=== PATIENT | female | born 1975 | race Caucasian/White ===

== ENCOUNTER 2020-11-08 09:13 | Emergency (ER) | payer BC ==
[~2020-11-08] VITALS: Ht 170.2 cm; Wt 104.5 kg
[~2020-11-08 09:13] MED LIST: ALPR-624 PO
[2020-11-08] MEDS ORDERED: normal saline 1000ML IV soln IVB ONE (09:35)
[2020-11-08] MEDS ORDERED: morphine 4 MG/ML inj SYRINge IV PRN (09:35)
[2020-11-08] MEDS ORDERED: ondansetron/PF 4mg/2ml inj IV ONE (09:35)
--- NOTE | 2020-11-08 09:52 | NUR ---
Pt refused morphine and zofran. States if she feels the need for pain medication she will inform me. Pt to CT via W/C.
[2020-11-08 09:53] LABS: CLARITY,URINE CLEAR (Clear); COLOR,URINE YELLOW (Yellow); GLUCOSE, URINE NEGATIVE (Neg); KETONES,URINE NEGATIVE (Neg); LEUKOCYTE ESTERASE ,URINE TRACE (Neg); NITRITES, URINE NEGATIVE (Neg); OCCULT BLOOD,URINE NEGATIVE (Neg); PH,URINE 6.5 (4.8-8.0); PROTEIN,URINE NEGATIVE (Neg); UROBILINOGEN,URINE 0.2 E.U/dL (0.2-1.0)
[2020-11-08 09:54] LABS: BASOPHILS % (AUTO) 0.5 % (0-1); EOSINOPHILS # (AUTO) 0.2 X10'3 (0-0.9); HEMATOCRIT 37.4 % (35.0-45.0); HEMOGLOBIN 12.5 g/dl (12.0-16.0); LYMPHOCYTES # (AUTO) 1.7 X10'3 (1.1-4.8); LYMPHOCYTES % (AUTO) 21.8 % (21-51); MEAN CORPUSCULAR HEMOGLOBIN 30.1 PG (27.0-31.0); MEAN CORPUSCULAR HGB CONC 33.4 g/dL (33.0-36.5); MEAN CORPUSCULAR VOLUME 90.1 FL (78-98); MEAN PLATELET VOLUME 8.7 FL (7.4-10.4); MONOCYTES # (AUTO) 0.7 X10'3 (0-0.9); MONOCYTES % (AUTO) 8.5 % (2-12); NEUTROPHILS # (AUTO) 5.4 X10'3 (1.8-7.7); NEUTROPHILS % (AUTO) 67.2 % (42-75); PLATELET COUNT 245 X10'3 (140-440); RED BLOOD COUNT 4.16 X10'6 (4.20-5.60); RED CELL DISTRIBUTION WIDTH 14.5 % (11.5-14.5)
[2020-11-08 10:13] LABS: UA COLLECTION TYPE CLN CATCH MIDSTREAM
[2020-11-08 10:14] LABS: BACTERIA,URINE 3+ /HPF (Neg); RBC,URINE NONE SEEN /HPF (0-2); SQUAMOUS EPITHELIAL CELL,UR FEW /LPF (FEW); WBC CLUMPS,URINE FEW /HPF (NEGATIVE); WBC,URINE 0-4 /HPF (0-4)
[2020-11-08 10:18] LABS: ALANINE AMINOTRANSFERASE 37 U/L (12-78); ALBUMIN 3.8 G/DL (3.4-5.0); ALBUMIN/GLOBULIN RATIO 0.9 (1.1-1.5); ALKALINE PHOSPHATASE 76 IU/L (46-116); ANION GAP 9 (8-16); ASPARTATE AMINO TRANSFERASE 23 U/L (10-37); BILIRUBIN,TOTAL 0.3 MG/DL (0.1-1.0); BLOOD UREA NITROGEN 8 MG/DL (7-18); BUN/CREATININE RATIO 7.8 (6.6-38.0); CALCIUM 9.5 MG/DL (8.5-10.1); CHLORIDE 103 MMOL/L (99-107); CREATININE 1.02 MG/DL (0.40-0.90); GLUCOSE 93 MG/DL (70-104); POTASSIUM 3.8 MMOL/L (3.5-5.1); SODIUM 140 MMOL/L (135-145); TOTAL PROTEIN 7.9 G/DL (6.4-8.2); eGFR 59 ML/MIN
[2020-11-08] MEDS ORDERED: AMOX-422 PO (10:35)
[2020-11-08] MEDS ORDERED: ONDA4TAB6 PO (10:35)
[2020-11-08 11:28] VITALS: BP 149/77
== END 2020-11-08 11:31 | disposition home or self-care (01) ==
LOC: ER 09:14
DX: K57.92 Diverticulitis of intestine, part unspecified, without perforation or abscess without bleeding (principal); J45.909 Unspecified asthma, uncomplicated; Z87.440 Personal history of urinary (tract) infections; Z90.89 Acquired absence of other organs; Z88.8 Allergy status to other drugs, medicaments and biological substances; Z79.899 Other long term (current) drug therapy; Z79.2 Long term (current) use of antibiotics
CPT/HCPCS: 36415; 71045; 74176; 80053; 81001; 83605; 84145; 85025; 87040; 87077; 87088; 87186; 93005; 96360; 99285; J7030; 99284

== ENCOUNTER 2020-11-20 19:40 | Emergency (ER) | payer BC ==
[~2020-11-20] VITALS: Ht 170.2 cm; Wt 103.2 kg
[~2020-11-20 19:40] MED LIST changes: +ONDA4TAB6 PO
[2020-11-20] MEDS ORDERED: ATOR10TA PO (20:10)
[2020-11-20] MEDS ORDERED: SYN0.088T PO (20:10)
[2020-11-20 20:55] LABS: BASOPHILS % (AUTO) 0.4 % (0-1); EOSINOPHILS # (AUTO) 0.1 X10'3 (0-0.9); EOSINOPHILS % (AUTO) 0.9 % (0-6); HEMATOCRIT 39.2 % (35.0-45.0); HEMOGLOBIN 13.2 g/dl (12.0-16.0); LYMPHOCYTES # (AUTO) 1.7 X10'3 (1.1-4.8); LYMPHOCYTES % (AUTO) 16.6 % (21-51); MEAN CORPUSCULAR HEMOGLOBIN 29.9 PG (27.0-31.0); MEAN CORPUSCULAR HGB CONC 33.6 g/dL (33.0-36.5); MEAN CORPUSCULAR VOLUME 88.8 FL (78-98); MEAN PLATELET VOLUME 9.4 FL (7.4-10.4); MONOCYTES # (AUTO) 0.6 X10'3 (0-0.9); NEUTROPHILS # (AUTO) 7.9 X10'3 (1.8-7.7); NEUTROPHILS % (AUTO) 76.1 % (42-75); PLATELET COUNT 234 X10'3 (140-440); RED BLOOD COUNT 4.41 X10'6 (4.20-5.60); RED CELL DISTRIBUTION WIDTH 14.3 % (11.5-14.5); WHITE BLOOD COUNT 10.4 X10'3 (4.5-11.0)
[2020-11-20 21:03] VITALS: BP 147/85
--- NOTE | 2020-11-20 21:07 | NUR ---
TO CT SCAN
[2020-11-20 21:15] LABS: ALANINE AMINOTRANSFERASE 25 U/L (12-78); ALBUMIN 4.5 G/DL (3.4-5.0); ALBUMIN/GLOBULIN RATIO 1.1 (1.1-1.5); ALKALINE PHOSPHATASE 75 IU/L (46-116); ANION GAP 11 (8-16); ASPARTATE AMINO TRANSFERASE 15 U/L (10-37); BILIRUBIN,TOTAL 0.3 MG/DL (0.1-1.0); BLOOD UREA NITROGEN 14 MG/DL (7-18); BUN/CREATININE RATIO 14.3 (6.6-38.0); CALCIUM 9.3 MG/DL (8.5-10.1); CHLORIDE 101 MMOL/L (99-107); CREATININE 0.98 MG/DL (0.40-0.90); GLUCOSE 105 MG/DL (70-104); SODIUM 139 MMOL/L (135-145); TOTAL CARBON DIOXIDE 26.8 MMOL/L (24-32); TOTAL PROTEIN 8.5 G/DL (6.4-8.2); eGFR 62 ML/MIN
[2020-11-20 21:16] LABS: CLARITY,URINE CLEAR (Clear); COLOR,URINE YELLOW (Yellow); GLUCOSE, URINE NEGATIVE (Neg); KETONES,URINE NEGATIVE (Neg); LEUKOCYTE ESTERASE ,URINE NEGATIVE (Neg); NITRITES, URINE NEGATIVE (Neg); OCCULT BLOOD,URINE NEGATIVE (Neg); PH,URINE 6.5 (4.8-8.0); PROTEIN,URINE NEGATIVE (Neg); UROBILINOGEN,URINE 0.2 E.U/dL (0.2-1.0)
[2020-11-20 21:18] LABS: UA COLLECTION TYPE CLN CATCH MIDSTREAM
== END 2020-11-20 21:35 | disposition home or self-care (01) ==
LOC: ER 19:41
DX: R55 Syncope and collapse (principal); R06.89 Other abnormalities of breathing; R41.0 Disorientation, unspecified; J45.909 Unspecified asthma, uncomplicated; F41.9 Anxiety disorder, unspecified; Z88.6 Allergy status to analgesic agent; Z88.5 Allergy status to narcotic agent; Z79.899 Other long term (current) drug therapy
CPT/HCPCS: 36415; 70450; 71045; 80053; 81003; 83880; 84484; 85025; 93005; 99285

== ENCOUNTER 2021-11-23 08:52 | Emergency (ER) | payer BC ==
[~2021-11-23] VITALS: Ht 170.2 cm; Wt 109.1 kg
[~2021-11-23 08:52] MED LIST changes: -ALPR-624 PO; +ATOR10TA PO; -ONDA4TAB6 PO; +SYN0.088T PO
[2021-11-23 08:59] VITALS: BP 119/89
[2021-11-23] MEDS ORDERED: piperacillin/tazo 3.375gm/50ml 50 ML IV ONE (09:05)
[2021-11-23] MEDS ORDERED: normal saline 1000ML IV soln IV ONE (09:05)
[2021-11-23 09:32] LABS: BASOPHILS % (AUTO) 0.2 % (0-1); EOSINOPHILS # (AUTO) 0.1 X10'3 (0-0.9); EOSINOPHILS % (AUTO) 1.3 % (0-6); HEMOGLOBIN 13.1 g/dl (12.0-16.0); LYMPHOCYTES # (AUTO) 0.6 X10'3 (1.1-4.8); LYMPHOCYTES % (AUTO) 11.1 % (21-51); MEAN CORPUSCULAR HGB CONC 33.6 g/dL (33.0-36.5); MEAN CORPUSCULAR VOLUME 92.4 FL (78-98); MEAN PLATELET VOLUME 8.3 FL (7.4-10.4); MONOCYTES # (AUTO) 0.4 X10'3 (0-0.9); MONOCYTES % (AUTO) 6.6 % (2-12); NEUTROPHILS # (AUTO) 4.4 X10'3 (1.8-7.7); NEUTROPHILS % (AUTO) 80.8 % (42-75); PLATELET COUNT 217 X10'3 (140-440); RED BLOOD COUNT 4.22 X10'6 (4.20-5.60); RED CELL DISTRIBUTION WIDTH 13.3 % (11.5-14.5); WHITE BLOOD COUNT 5.5 X10'3 (4.5-11.0)
[2021-11-23 10:04] LABS: ALANINE AMINOTRANSFERASE 29 U/L (12-78); ALBUMIN 3.8 G/DL (3.4-5.0); ALBUMIN/GLOBULIN RATIO 1.1 (1.1-1.5); ALKALINE PHOSPHATASE 67 IU/L (46-116); ANION GAP 9 (8-16); ASPARTATE AMINO TRANSFERASE 20 U/L (10-37); BILIRUBIN,TOTAL 0.5 MG/DL (0.1-1.0); BLOOD UREA NITROGEN 13 MG/DL (7-18); BUN/CREATININE RATIO 12.9 (6.6-38.0); CALCIUM 8.6 MG/DL (8.5-10.1); CHLORIDE 101 MMOL/L (99-107); CREATININE 1.01 MG/DL (0.40-0.90); GLUCOSE 108 MG/DL (70-104); POTASSIUM 3.9 MMOL/L (3.5-5.1); SODIUM 137 MMOL/L (135-145); TOTAL CARBON DIOXIDE 26.8 MMOL/L (24-32); TOTAL PROTEIN 7.3 G/DL (6.4-8.2); eGFR 60 ML/MIN
[2021-11-23] MEDS ORDERED: TRAM50TA2 PO (10:13)
[2021-11-23] MEDS ORDERED: AMOX-117 PO (10:13)
[2021-11-23] MEDS ORDERED: DOXY100C77 PO (10:13)
[2021-11-23] MEDS ORDERED: ONDA4TAB12 PO (10:13)
[2021-11-23 10:49] LABS: CLARITY,URINE CLEAR (Clear); COLOR,URINE YELLOW (Yellow); GLUCOSE, URINE NEGATIVE (Neg); KETONES,URINE NEGATIVE (Neg); LEUKOCYTE ESTERASE ,URINE NEGATIVE (Neg); NITRITES, URINE NEGATIVE (Neg); OCCULT BLOOD,URINE NEGATIVE (Neg); PH,URINE 5.5 (4.8-8.0); PROTEIN,URINE NEGATIVE (Neg); UROBILINOGEN,URINE 0.2 E.U/dL (0.2-1.0)
[2021-11-23 10:54] LABS: UA COLLECTION TYPE CLN CATCH MIDSTREAM
== END 2021-11-23 13:26 | disposition home or self-care (01) ==
LOC: ER 08:53
DX: K57.92 Diverticulitis of intestine, part unspecified, without perforation or abscess without bleeding (principal); R10.30 Lower abdominal pain, unspecified; R19.7 Diarrhea, unspecified; F41.9 Anxiety disorder, unspecified; J45.909 Unspecified asthma, uncomplicated; Z87.440 Personal history of urinary (tract) infections; Z98.890 Other specified postprocedural states; Z88.5 Allergy status to narcotic agent; Z88.8 Allergy status to other drugs, medicaments and biological substances; Z79.2 Long term (current) use of antibiotics; Z79.899 Other long term (current) drug therapy
CPT/HCPCS: 36415; 80053; 81003; 84145; 85025; 96365; 99284; J2543; J7030

== ENCOUNTER 2022-10-12 12:20 | Emergency (ER) | payer BC ==
[~2022-10-12] VITALS: Ht 170.2 cm; Wt 113.6 kg
[~2022-10-12 12:20] MED LIST changes: +ONDA4TAB12 PO
[2022-10-12 12:41] VITALS: BP 174/94
[2022-10-12] MEDS ORDERED: LORazepam 0.5 MG tablet PO ONE (13:30)
[2022-10-12] MEDS ORDERED: hydrOXYzine 25 MG tablet PO ONE (13:30)
[2022-10-12] MEDS ORDERED: HYDR-3686 PO (15:09)
== END 2022-10-12 15:12 | disposition home or self-care (01) ==
LOC: ER 12:21
DX: F41.9 Anxiety disorder, unspecified (principal); J45.909 Unspecified asthma, uncomplicated; Z98.890 Other specified postprocedural states; Z88.5 Allergy status to narcotic agent; Z79.899 Other long term (current) drug therapy
CPT/HCPCS: 93005; 99283; Q0177

== ENCOUNTER 2025-05-20 08:37 | Emergency (ER) | payer MEDICAID ==
[~2025-05-20] VITALS: Ht 172.7 cm; Wt 103.1 kg
[~2025-05-20 08:37] MED LIST changes: +ONDA-243 PO; -ONDA4TAB12 PO
--- NOTE | 2025-05-20 09:07 | Physician Documentation ---
History of Present Illness ~ Chief Complaint: Hip pain Stated Complaint: L HIP PAIN Time Seen by MD: 08:54 Primary Medical Doctor: [facility] A 49-year-old female who presents with left posterior hip pain radiating to left leg onset four days prior, patient reports that she has been seen by primary care and diagnosed with sciatica and prescribed muscle relaxers that did not significantly decreased pain. Patient reports paresthesias to left toes though no other new weakness or numbness to legs, no loss of bowel or bladder control, no saddle paresthesia, and reports no history of IV drug use, cancer, tuberculosis, recent fever, or recent unexpected weight loss. Patient additionally reports left leg feels more swollen than right leg. Medication Reconciliation Allergies: Coded Allergies: codeine (Unverified Allergy, Unknown, 05/20/25) hydrocodone (Unverified Allergy, Unknown, 05/20/25) Scheduled Atorvastatin Calcium (Lipitor), 1 TAB PO DAILY, (Reported) Ibuprofen (Ibuprofen), 1 TAB PO Q8H Levothyroxine Sodium* (Synthroid*), 2 TAB PO DAILY, (Reported) Lidocaine (Lidoderm), 1 PATCH TOP DAILY Scheduled PRN ONDANSETRON ODT 4mg tablet (Ondansetron Odt), 1 TABLET PO Q6H PRN for nausea/vomiting Past Medical History Past Medical History: Asthma, Renal Disease, UTI, Thyroid (unspecified), Anxiety Past Surgical History: other Other Past Surgical History: thyroidectomy Alcohol Use: None Drug Use: none Lives In: Home Review of Systems ROS As stated above in the HPI, otherwise all systems are reviewed and negative. Physical Exam Vital Signs: Temperature: 97.8, Source: Oral, Heart Rate: 73, Respiratory Rate: 16, BP: 160/94, Pulse Oximetry: 99, Weight: 103.100 Oxygen Flow Rate: 0 Physical Exam VITALS: Reviewed and as above. GENERAL: Alert, nontoxic appearing, no apparent distress. RESPIRATORY: No increased work of breathing, no respiratory distress, speaking in full clear sentences BACK: No midline spinal tenderness, no step-offs, no crepitus EXTREMITIES: Left lower extremity slightly larger than right, no pitting edema, no obvious deformity, no ecchymosis, pedal pulses intact and equal bilaterally, no leg tenderness palpation Progress Results/Orders Results/Orders Orders - PEYMAN GODOY Vl Venous (05/20/25 09:09) Completed Orders - PEYMAN GODOY [facility] Venous (05/20/25 09:09) Ketorolac Trometh 15mg/Ml Vial (Toradol (05/20/25 09:45) Lidocaine 5% Patch (Lidoderm 5% Patch) (05/20/25 10:05) Vital Signs 05/20/25 05/20/25 08:41 10:25 Temp 97.8 97.8 Pulse 73 73 Resp 16 16 B/P (MAP) 160/94 162/89 Pulse Ox 99 98 O2 Flow Rate 0 EKG/XRAY/CT/US/VASC/MRI Bone/Soft Tissue X-Ray (Ext.) : Additional Comment Exam: HIP UNILATERAL 2 VIEWS PROCEDURE: Left hip radiographs. INDICATION: LT.HIP PAIN TECHNIQUE: 3 views of the left hip were obtained. COMPARISON: None FINDINGS: There is no evidence of fracture or dislocation. Joint spaces are maintained. The soft tissues are unremarkable. IMPRESSION: 1. No fracture or dislocation. Electronically Signed by:MILA AVILA MD Date & Time: 05/20/25945 Dictated by: MILA AVILA MD Dictation date and time: 05/20/25945 I have reviewed and agree with the radiology report. I have reviewed and interpreted the imaging as: No fracture or dislocation Vascular : Impression Left lower extremity venous duplex Clinical History: pain Comparison: None Technique: Duplex Doppler evaluation of the deep venous system of the left lower extremity from the common femoral vein to the popliteal vein including color Doppler and spectral/pulsed waveform analysis was performed. Findings: The common femoral vein demonstrates appropriate compressibility and waveform variability. There is compressibility/patency of the great saphenous vein at the proximal thigh. The femoral vein demonstrates appropriate compressibility and waveform variability. The deep femoral vein demonstrates appropriate compressibility and waveform variability. The popliteal vein demonstrates appropriate compressibility and waveform variability. There is normal compressibility at the tibioperoneal trunk. Impression: No left femoropopliteal venous thrombosis. Contralateral common femoral vein is patent. Dictated by:GAMALIEL JIMENEZ MD Dictation date and time:05/20/25 1038 Electronically Signed by: GAMALIEL JIMENEZ MD Date and Time: 05/20/25 1038 Transcribed: IGNACIO Medical Decision Making Findings This 49-year-old female presented with left posterior hip pain that radiates down left leg, symptoms are consistent with previously diagnosed sciatica, it is reassuring patient reports no new weakness or numbness in legs, saddle paresthesias, loss of bowel or bladder control, or history of IV drug use, cancer, tuberculosis, and no recent fevers therefore imaging of spine is not indicated. X-ray of hip was obtained and did not demonstrate evidence of fracture or dislocation. Due to patient's concern for lice swelling he vascular ultrasound was obtained though was negative for DVT or other pathology to explain edema. As patient is otherwise well and reported no other acute symptoms or concerns she will be treated for pain and discharged to follow up with primary care provider. Differential Dx:Considerations: Include: Arthritis, Arthritis-Septic, Contusion, Dislocation, Fracture-femur, Fracture-hip, Fracture-open, Fracture- pelvis, Neurovascular injury, Sprain, Other (Cauda equina, ) Departure Time of Disposition: 10:09 Disposition: 01 HOME / SELF CARE / HOMELESS Impression: Primary Impression: Low back pain Qualified Codes: M54.42 - Lumbago with sciatica, left side Condition: Improved Discharge Instructions: Acute Back Pain, Adult Additional Instructions: Do not use ibuprofen for the next 12 hours as you received a Toradol injection in the emergency department, otherwise: Please use the prescribed ibuprofen as directed as needed for pain, you may add Tylenol to this for breakthrough pain. Additionally you may continue to use your previously prescribed muscle relaxers. You may use the prescribed Lidoderm patches as as needed for pain though do not place heating packs over the patch. Take ibuprofen with food to avoid stomach upset. Please follow up with your primary care provider in the next few days. Please return to the emergency department for any new or worsening concerning symptoms including but not limited to new weakness or numbness in your leg, loss of bowel or bladder control, or numbness or tingling in your groin. Referrals: NO PRIMARY CARE PROVIDER (PCP) Prescriptions Ibuprofen (Ibuprofen) 800 Mg Tablet 1 TAB PO Q8H for pain for 10 Days, #30 TAB 0 Refills Prov: PEYMAN GODOY 05/20/25 Lidocaine (Lidoderm) 5 % Adh..patch 1 PATCH TOP DAILY for 10 Days, #10 PATCH 0 Refills may wear up to 12 hours Prov: PEYMAN GODOY 05/20/25 Education Educated: Patient Educated regarding: diagnosis, treatment, prognosis, need for follow up Signature Scribe Signature: No scribe Attestation: The note accurately reflects work and decisions made by me.MUNA Rojas 05/21/25 20:01 PEYMAN GODOY May 20, 2025 09:07
--- NOTE | 2025-05-20 09:48 | RADIOLOGY REPORT ---
PROCEDURE: Left hip radiographs. INDICATION: LT.HIP PAIN TECHNIQUE: 3 views of the left hip were obtained. COMPARISON: None FINDINGS: There is no evidence of fracture or dislocation. Joint spaces are maintained. The soft tis sues are unremarkable. IMPRESSION: 1. No fracture or dislocation.
[2025-05-20] MEDS: ketorolac trometh 15mg/ml vial 15 MG/ML ML IM ONE (10:12)
[2025-05-20] MEDS ORDERED: LIDO-52 TOP (10:12)
[2025-05-20] MEDS ORDERED: IBUP-1986 PO (10:12)
[2025-05-20 10:25] VITALS: BP 162/89; PULSE 73; RESP 16; TEMP 97.8; O2SAT 98
--- NOTE | 2025-05-20 10:40 | VASCULAR REPORT ---
Left lower extremity venous duplex Clinical History: pain Comparison: None Technique: Duplex Doppler evaluation of the deep venous system of the left lower extremity from the common femor al vein to the popliteal vein including color Doppler and spectral/pulsed waveform analysis was perfo rmed. Findings: The common femoral vein demonstrates appropriate compressibility and waveform variability. There is compressibility/patency of the great saphenous vein at the proximal thigh. The femoral vein demonstrates appropriate compressibility and waveform variability. The deep femoral vein demonstrates appropriate compressibility and waveform variability. The popliteal vein demonstrates appropriate compressibility and waveform variability. There is normal compressibility at the tibioperoneal trunk. Impression: No left femoropopliteal venous thrombosis. Contralateral common femoral vein is patent.
== END 2025-05-20 10:26 | disposition home or self-care (01) ==
LOC: ER 08:38
DX: M54.50 Low back pain, unspecified (principal); M25.552 Pain in left hip; J45.909 Unspecified asthma, uncomplicated; F41.9 Anxiety disorder, unspecified; Z90.89 Acquired absence of other organs; Z88.5 Allergy status to narcotic agent; Z79.899 Other long term (current) drug therapy
CPT/HCPCS: 73502; 93971; 96372; 99285; J1885

== ENCOUNTER 2025-08-31 09:18 | Emergency (ER) | payer MEDICAID ==
[~2025-08-31] VITALS: Ht 172.7 cm; Wt 109.1 kg
[~2025-08-31 09:18] MED LIST changes: +IBUP-1986 PO; +LIDO-52 TOP
[2025-08-31 09:19] VITALS: TEMP 97.7
[2025-08-31 09:54] LABS: MEAN PLATELET VOLUME 8.0 FL (7.4-10.4); RED CELL DISTRIBUTION WIDTH 13.8 % (11.5-14.5)
[2025-08-31 10:17] LABS: CREATININE 0.99 MG/DL (0.40-0.90); TOTAL CARBON DIOXIDE 26.7 MMOL/L (24-32); eCRCL 70 ML/MIN; eGFR 60 ML/MIN
[2025-08-31 10:27] LABS: URINE HCG NEGATIVE (NEG)
[2025-08-31 10:37] LABS: LEUKOCYTE ESTERASE ,URINE NEGATIVE (Neg); NITRITES, URINE POSITIVE (Neg); OCCULT BLOOD,URINE NEGATIVE (Neg)
[2025-08-31 10:41] LABS: UA COLLECTION TYPE CLN CATCH MIDSTREAM
[2025-08-31 10:49] LABS: SQUAMOUS EPITHELIAL CELL,UR MODERATE /LPF (FEW)
--- NOTE | 2025-08-31 10:58 | Physician Documentation ---
History of Present Illness ~ Chief Complaint: Abdominal Pain w/vomiting Stated Complaint: POSSIBLE DIVERTICUITIS FLARE UP Time Seen by MD: 14:39 Primary Medical Doctor: [facility] HPI This is a 50-year-old female with a history of diverticulitis presents with generalized abdominal pain greatest in the left lower quadrant and left lumbar back pain without fever, dysuria, or hematuria for the past week, patient reports some blood in her stool last week and vomiting last week however both these have resolved. Patient reports normal bowel movement yesterday. Patient reports this feels like her previous episode of diverticulitis. Patient reports no other acute symptoms or concerns. Medication Reconciliation Allergies: Coded Allergies: codeine (Unverified Allergy, Unknown, 05/20/25) hydrocodone (Unverified Allergy, Unknown, 05/20/25) Scheduled Atorvastatin Calcium (Lipitor), 1 TAB PO DAILY, (Reported) Cephalexin*Monohydrate* (Keflex*), 1 CAP PO QID Clotrimazole (Clotrimazole 3), 1 APPLICATOR VG HS Ibuprofen (Ibuprofen), 1 TAB PO Q8H Levothyroxine Sodium* (Synthroid*), 2 TAB PO DAILY, (Reported) Lidocaine (Lidoderm), 1 PATCH TOP DAILY Scheduled PRN ONDANSETRON ODT 4mg tablet (Ondansetron Odt), 1 TABLET PO Q6H PRN for nausea/vomiting Past Medical History Past Medical History: Asthma, Diverticulitis, Renal Disease, UTI, Thyroid (unspecified), Anxiety Past Surgical History: other Other Past Surgical History: thyroidectomy Alcohol Use: None Drug Use: none Lives In: Home Review of Systems ROS As stated above in the HPI, otherwise all systems are reviewed and negative. Physical Exam Vital Signs: Temperature: 97.7, Source: Oral, Heart Rate: 72, Respiratory Rate: 15, BP: 160/88, Pulse Oximetry: 99, Weight: 109.090 Oxygen Flow Rate: 0 Physical Exam VITALS: Reviewed and as above. GENERAL: Alert, nontoxic appearing, no apparent distress. RESPIRATORY: No increased work of breathing, no respiratory distress, speaking in full clear sentences, clear lung sounds in all childs CV: Regular rate and rhythm no murmur BACK: No CVA tenderness, no spinal tenderness, no tenderness to palpation of back GI: Generalized mild tenderness to palpation in all quadrants with left lower quadrant greatest tenderness, no rebound, no guarding, nondistended, soft, bowel sounds present. No abdominal masses palpated MUSCULOSKELETAL: SKIN: No abdominal ecchymosis or erythema Progress Results/Orders Results/Orders Orders - PEYMAN GODOY [employer] Ct Abdomen Pelvis (08/31/25 15:15) Completed Orders - PEYMAN GODOY [facility] Ct Abdomen Pelvis (08/31/25 15:15) Normal Saline 1000ml (0.9% Sodium Chlori (08/31/25 14:55) Acetaminophen 325mg Tablet (Tylenol Tabl (08/31/25 14:55) Iohexol 300mg/Ml 100ml Inj. (Omnipaque-3 (08/31/25 15:09) Medications Received in ER Medications (Trade) Dose Ordered Sig/John Route PRN Reason Start Time Stop Time Status Last Admin Dose Admin (0.9% sodium chloride (NS) 1000ml IV soln) 1,000 ml ONCE ONCE IVB 08/31/25 14:55 08/31/25 14:56 DC 08/31/25 15:06 1,000 ML (Tylenol tablet) 650 mg ONCE ONCE PO 08/31/25 14:55 08/31/25 14:56 DC 08/31/25 15:06 650 MG Vital Signs 08/31/25 08/31/25 08/31/25 08/31/25 09:19 13:00 13:00 14:00 Temp 97.7 Pulse 72 66 62 Resp 15 12 B/P (MAP) 160/88 158/92 (114) 142/86 (104) Pulse Ox 99 98 99 O2 Flow Rate 0 0 08/31/25 08/31/25 15:08 16:49 Pulse 100 69 Resp 14 B/P (MAP) 153/98 (116) 164/81 Pulse Ox 100 94 O2 Flow Rate 0 Laboratory Tests Test 08/31/25 09:25 08/31/25 09:46 Urine Specimen Description Cln catch midstream Urine Color Yellow Urine Clarity Slightly cloudy Urine pH 6.0 Urine Specific [place] 1.020 Urine Protein Negative Urine Glucose (UA) Negative Urine Ketones Negative Urine Occult Blood Negative Urine Nitrite Positive H Urine Bilirubin Negative Urine Urobilinogen 0.2 Urine Leukocyte Esterase Negative Urine RBC 0-2 Urine WBC 5-10 H Urine Squamous Epithelial Cells Moderate Urine Bacteria 4+ Urine Culture Indicated Indicated Volume Urine Centrifuged 10 ml Urine HCG, Qualitative Negative Urine Comment White Blood Count 6.3 Red Blood Count 4.40 Hemoglobin 13.6 Hematocrit 40.1 Mean Corpuscular Volume 91.2 Mean Corpuscular Hemoglobin 31.0 Mean Corpuscular Hemoglobin Concent 34.0 Red Cell Distribution Width 13.8 Platelet Count 282 Mean Platelet Volume 8.0 Neutrophils (%) (Auto) 63.4 Lymphocytes (%) (Auto) 27.8 Monocytes (%) (Auto) 6.3 Eosinophils (%) (Auto) 2.1 Basophils (%) (Auto) 0.4 Neutrophils # (Auto) 4.0 Lymphocytes # (Auto) 1.8 Monocytes # (Auto) 0.4 Eosinophils # (Auto) 0.1 Basophils # (Auto) 0.0 CBC Comment Sodium Level 141 Potassium Level 4.4 Chloride Level 105 Carbon Dioxide Level 26.7 Anion Gap 9 Blood Urea Nitrogen 9 Creatinine 0.99 H Estimated GFR/1.73 m2 60 BUN/Creatinine Ratio 9.1 L Glucose Level 91 Calcium Level 8.5 Total Bilirubin 0.4 Aspartate Amino Transf (AST/SGOT) 23 Alanine Aminotransferase (ALT/SGPT) 35 Alkaline Phosphatase 118 H Total Protein 8.2 Albumin 4.4 Globulin 3.8 Albumin/Globulin Ratio 1.2 Lipase 35 Chemistry Comments Microbiology Date/Time Source Procedure Growth Status 08/31/25 10:50 Urine Clean Catch Midstream Urine Culture - Preliminary Culture received. Resulted EKG/XRAY/CT/US/VASC/MRI CT : Impression Exam: CT ABDOMEN PELVIS Exam: CT CT ABDOMEN PELVIS W/ IV CONTRAST History: Abd Pain Greatest In LLQ Comparison Study: CT ABDOMEN PELVIS on DOS: 11/08/20 TECHNIQUE: Multidetector CT of the abdomen was performed from lung bases to pubic symphysis. Imaging was performed without IV contrast. Axial, coronal and sagittal multiplanar reformats were obtained from the axial data set by the technologist. Radiation Dose Information: Dose-length product is 720 mGy*cm FINDINGS: Limited sections of the lung bases demonstrate no focal pulmonary mass. Pneumatocele within the left base. The liver, spleen, pancreas, and both adrenal glands demonstrate no acute findings. Hepatic steatosis. Hepatomegaly to 22.2 cm. The gallbladder is unremarkable. Small hiatal hernia. Stomach is otherwise unremarkable. The small bowel loops are not dilated. Scattered mild thickening about the small bowel loops may reflect enteritis. The appendix is normal. No colonic obstruction. Extensive colonic diverticulosis with acute diverticulitis. Bilateral kidneys are unremarkable. No hydronephrosis. The urinary bladder is distended. No significant lymphadenopathy. No free air or free fluid. The aorta and IVC demonstrate no acute findings. Visualized osseous structures demonstrate no acute abnormality. IMPRESSION: 1. Scattered mild thickening about the small bowel loops may reflect enteritis. No bowel obstruction. 2. Extensive colonic diverticulosis without acute diverticulitis 3. Otherwise no acute intra-abdominal process. Electronically Signed by:DAVID SALAZAR MD Date & Time: 08/31/251605 Dictated by: DAVID SALAZAR MD Dictation date and time: 08/31/251605 I have reviewed and agree with the radiology report. I have reviewed and interpreted the imaging as: No intraperitoneal free air Medical Decision Making Additional information obtaine: N/A Findings MSE performed in triage and patient returned to ED lobby by nursing staff to await available ED room This 50-year-old female presented with one-week of generalized abdominal discomfort with pain greatest in left lower quadrant with pain to left lower back as well, patient reported symptoms similar to previous diverticulitis, imaging obtained demonstrating diverticulosis without diverticulitis though findings were suggestive of generalized enteritis. Lab work significant for evidence of urinary tract infection though otherwise reassuring without leukocytosis or metabolic/electrolyte derangement. While there was generalized tenderness to palpation it is reassuring that there was no rebound, guarding and tenderness was not severe. Patient was medicated for pain and on pain reassessment patient declined further pain medication. Patient is otherwise well-appearing and remainder of physical exam benign, hemodynamically stable and appropriate for outpatient follow up. Provided careful return to care precautions, follow up instructions, and home care instructions. Urinary Diff Dx:Considerations: Include: Aortic dissection, Appendicitis, Bowel obstruction, Cholelithiasis, Choleangitis, Ectopic , Hepatitis, Impaction, Intrauterine , Musculoskeletal pain, Ovarian torsion, Pancreatitis, PID, Pyelonephritis, Renal failure, Strain, Urinary Obstruction, Urolithiasis, Urinary retention, UTI, Vaginitis Genital Diff Dx:Considerations: Include: Bartholin cyst, Constipation, Cervicitis, Dsymenorrhea, Ectopic , Intrauterine , PID, , UTI Departure Time of Disposition: 16:22 Disposition: 01 HOME / SELF CARE / HOMELESS Impression: Primary Impression: Abdominal pain Qualified Codes: R10.32 - Left lower quadrant pain Condition: Improved Discharge Instructions: Abdominal Pain (Nonspecific) Additional Instructions: Please take antibiotics as prescribed. You may use ibuprofen and or Tylenol as needed for pain as directed by [id number] packaging. Please follow up with your primary care provider in the next few days. Please return to the emergency department for any new or worsening concerning symptoms including but not limited to bloody stools, persistent vomiting, or if you develop a fever over 100.4 that does not lower with ibuprofen or Tylenol. Referrals: NO PRIMARY CARE PROVIDER (PCP) Prescriptions Clotrimazole (Clotrimazole 3) 2 % Cream.appl 1 APPLICATOR VG HS for 3 Days, #21 GM 0 Refills Prov: PEYMAN GODOY 08/31/25 Cephalexin*Monohydrate* (Keflex*) 500 Mg Capsule 1 CAP PO QID for 7 Days, #28 CAP Prov: PEYMAN GODOY 08/31/25 Education Educated: Patient Educated regarding: diagnosis, treatment, prognosis, need for follow up Signature Scribe Signature: No scribe Attestation: The note accurately reflects work and decisions made by me.MUNA Rojas 08/31/25 16:31 PEYMAN GODOY Aug 31, 2025 10:58
[2025-08-31] MEDS: normal saline 1000ML IV soln IVB ONE (15:06)
[2025-08-31 15:08] VITALS: RESP 14
[2025-08-31] MEDS ORDERED: iohexol 300mg/ml 100ml inj. ONE (15:09)
--- NOTE | 2025-08-31 16:08 | RADIOLOGY REPORT ---
Exam: CT CT ABDOMEN PELVIS W/ IV CONTRAST History: Abd Pain Greatest In LLQ Comparison Study: CT ABDOMEN PELVIS on DOS: 11/08/20 TECHNIQUE: Multidetector CT of the abdomen was performed from lung bases to pubic symphysis. Imaging was performed without IV contrast. Axial, coronal and sagittal multiplanar reformats were obtained from the axial data set by the technologist. Radiation Dose Information: Dose-length product is 720 mGy*cm FINDINGS: Limited sections of the lung bases demonstrate no focal pulmonary mass. Pneumatocele within the left base. The liver, spleen, pancreas, and both adrenal glands demonstrate no acute findings. Hepatic steatosis. Hepatomegaly to 22.2 cm. The gallbladder is unremarkable. Small hiatal hernia. Stomach is otherwise unremarkable. The small bowel loops are not dilated. Scattered mild thickening about the small bowel loops may reflect enteritis. The appendix is normal. No colonic obstruction. Extensive colonic diverticulosis with acute diverticulitis. Bilateral kidneys are unremarkable. No hydronephrosis. The urinary bladder is distended. No significant lymphadenopathy. No free air or free fluid. The aorta and IVC demonstrate no acute findings. Visualized osseous structures demonstrate no acute abnormality. IMPRESSION: 1. Scattered mild thickening about the small bowel loops may reflect enteritis. No bowel obstruction. 2. Extensive colonic diverticulosis without acute diverticulitis 3. Otherwise no acute intra-abdominal process.
[2025-08-31] MEDS ORDERED: CEPH-585 PO (16:26)
[2025-08-31] MEDS ORDERED: CLOT21CR7 VG (16:30)
[2025-08-31 16:49] VITALS: BP 164/81; PULSE 69; O2SAT 94
== END 2025-08-31 16:53 | disposition home or self-care (01) ==
LOC: ER 09:19
DX: R10.32 Left lower quadrant pain (principal); F41.9 Anxiety disorder, unspecified; Z88.5 Allergy status to narcotic agent; Z90.89 Acquired absence of other organs; Z87.440 Personal history of urinary (tract) infections; Z79.899 Other long term (current) drug therapy
CPT/HCPCS: 36415; 74177; 80053; 81001; 81025; 83690; 85025; 87077; 87088; 87186; 96360; 99285; J7030; Q9967